=== PATIENT | female | born 1930 | race Caucasian/White ===

== ENCOUNTER 2018-07-02 12:34 | Outpatient (CLI) | payer MEDICARE, OTHER ==
[2018-07-02 12:57] LABS: BASOPHILS % 0.5 (0.0-1.5); EOSINOPHILS % 2.3 % (0.0-6.8); MEAN CORPUSCULAR HEMOGLOBIN 30.8 pg (28.0-34.0); MEAN CORPUSCULAR VOLUME 92.6 fl (80.0-100.0); MONOCYTES % 6.8 % (0.0-11.0); NEUTROPHILS # 2.8 # k/uL (1.4-7.7)
[2018-07-02 13:13] LABS: eGFR (Non-African) > 60
== END 2018-07-02 12:40 ==
LOC: LAB 12:34
PROVIDERS: ATTEND Family Medicine
DX: I10 Essential (primary) hypertension (principal)
CPT/HCPCS: 36415; 80053; 85025

== ENCOUNTER 2018-08-10 11:48 | Outpatient (CLI) | payer MEDICARE, OTHER ==
--- NOTE | 2018-08-10 13:50 | PAIN CLINIC PROGRESS NOTES ---
REASON FOR VISIT: I had the opportunity of following up with Minerva Simmons. 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 She said that about a couple of months ago the pain was returning in the right parascapular area, right side of the neck, and the right arm and she was very concerned that it was going to get as bad as it was previously. Since that time, her symptoms have resolved. She says she some symptoms in the right arm but she has been pulling iniguez quique and she thinks it may be from pulling weeds in her garden at this point. She is not having any significant neck pain or parascapular symptoms. She is not limited. I examined her and I do not find any symptoms of terri radiculitis at this point. 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 PLAN: We will give Minerva an appointment in 1 month for a cervical epidural injection. I have told if the symptoms return, she will have an appointment and we can treat it at that time and, otherwise, she can call and let that appointment go. Dr. Hidalgo, thank you for allowing me to take part in the care of this nice lady. I appreciate the opportunity to take part in the care of your patients. cc: Dr. Aron MAR
== END 2018-08-10 11:50 ==
LOC: OUT 11:48
PROVIDERS: ATTEND Anesthesiology Pain Medicine
DX: M50.321 Other cervical disc degeneration at C4-C5 level (principal)
CPT/HCPCS: 99213; G0463

== ENCOUNTER 2018-09-14 10:26 | Outpatient (CLI) | payer MEDICARE, OTHER ==
[~2018-09-14 10:26] MED LIST: 0.9 % SODIUM CHLORIDE PF 10 ML VIAL IJ ONE; LIDOCAINE HCL 2% PF 100MG/5ML VIAL IJ ONE; SALINE FLUSH 10 ML DISP.SYRIN IVF ONE; TRIAMCINOLONE ACETONID 40MG/ML VIAL ONE
--- NOTE | 2018-09-20 13:56 | CERVICAL ESI WITH FLUORO ---
SUBJECTIVE: Ms. Simmons presents today with recurrent right upper extremity pain. She was seen last month and the pain was intermittent. She thought it was getting better, so we postponed any treatment. She says that she continues to have cervicalgia and neck pain with right-sided radicular symptoms, particularly with any use of the arm. At this point, we are going to place a repeat epidural steroid injection as she had good relief in the past. PROCEDURE: Right C6-C7 epidural steroid injection with fluoroscopic guidance. DESCRIPTION OF THE PROCEDURE: The risks and benefits were discussed with the patient, including the risks of infection, bleeding, nerve injury including paralysis, and headache. Furthermore, I discussed the risk of steroid exposure causing hyperglycemia, hypertension, osteoporosis, or increased infectious risks. The patient understood these risks and agreed to proceed. Consent was obtained. The patient was placed prone on the fluoroscopy table with a pillow underneath the chest to afford slight anterior flexion of the cervical spine. The patient's back of the neck was cleaned and a sterile drape was applied. A Tuohy epidural needle was inserted with a right paramedian approach at the C6-C7 level. The position of the needle was verified with AP and lateral fluoroscopic views. The needle was advanced with a normal saline [id number] technique until [id number] was obtained. On obtaining [id number] to normal saline it was verified that there was no aspiration of CSF or blood. At this point, Omnipaque 240 myelogram dye was injected into the cervical epidural space. It was verified with fluoroscopic views that the dye was located within the epidural space in the desired distribution. At this point, the medication was injected into the cervical epidural space. The stylet was replaced in the needle and the needle was removed from the neck. The neck was cleaned and a bandage was applied over the injection site. The patient tolerated the procedure well and was monitored afterwards for a total of 20 minutes during which time the vital signs remained stable and no adverse sequelae were experienced. The patient was discharged home in good condition. Prior to discharge the patient was given discharge instructions. ASSESSMENT: Right cervical radiculitis. PLAN: Right C6-C7 epidural steroid injection with fluoroscopic guidance today. FOLLOW UP: Return to Clinic if problems develop or worsen. cc: Dr. Aron MAR
== END 2018-09-14 10:28 ==
LOC: OUT 10:26
PROVIDERS: ATTEND Anesthesiology Pain Medicine
DX: M54.12 Radiculopathy, cervical region (principal)
CPT/HCPCS: 62321; J2001; J3301; Q9966